=== PATIENT | female | born 1960 | race African-American/Black ===

== ENCOUNTER 2023-03-27 06:50 | Observation (INO) | payer OTHER, SELFPAY ==
[2023-03-27] VITALS (30 sets, daily range): BP systolic 110–146; BP diastolic 67–86; PULSE 99–132; RESP 16–28; TEMP 36.1–36.6; O2SAT 92–100; BMI 24.3
--- NOTE | ~2023-03-27 | US_ITS ---
EXAMINATION:US venous doppler LE BI INDICATION:Lower extremity edema TECHNIQUE: Multiple grayscale, color flow and Doppler images of the right and left lower extremity de ep venous systems were obtained and reviewed. COMPARISON:No prior studies for comparison. FINDINGS: The common femoral, superficial femoral and popliteal veins demonstrate normal respiratory variation, augmentation and compressibility. Color flow is also seen within the posterior tibial, pe roneal, greater saphenous and profunda veins. IMPRESSION: 1: No lower extremity deep venous thrombosis. Reviewed, dictated and finalized at location B.
--- NOTE | ~2023-03-27 | XR_ITS ---
XR chest 2V DATE: 03/27/2023 07:42 INDICATION: Left chest pain TECHNIQUE: AP and lateral views COMPARISON: None FINDINGS: Mild cardiomegaly. There is prominence of them greater fissures which may indicate subpleur al edema. There is mild infiltrate or atelectasis in the lower lung zones. No pleural effusion is evident. No p neumothorax. IMPRESSION: Cardiomegaly Prominence of fissures which may indicate subpleural edema, mild congestive change Mild infiltrate or atelectasis in the lower lung zones Reviewed, dictated and finalized at location A. IMPRESSION: Cardiomegaly Prominence of fissures which may indicate subpleural edema, mild congestive troy nge Mild infiltrate or atelectasis in the lower lung zones
--- NOTE | ~2023-03-27 | CT_ITS ---
EXAMINATION: CT chest abdomen pelvis w con DATE: 03/27/2023 08:45 INDICATION: Chest pain, upper abdominal pain TECHNIQUE: Computed tomography (CT) of the chest, abdomen, and pelvis was performed with 100 CC Omnip aque 350 intravenous contrast. Automated exposure control and iterative reconstruction technique were employed. Exam dose: 434.24 mGy-cm total exam DLP. COMPARISON: 03/27/2023 AP and lateral chest FINDINGS: CHEST CT: Minimal discoid atelectasis and/or scarring in the base of the middle lobe and both lower lobes. No p ulmonary mass lesion or consolidation. Mild cardiomegaly. Right pericardial 2.6 x 4 cm cyst. No pericardial or pleural effusion. No thoracic aortic aneurysm or dissection. ABDOMEN/PELVIS CT: Diffuse hepatic steatosis. No hepatic, splenic, pancreatic, and adrenal or renal space-occupying mass lesion is detected. The gallbladder appears unremarkable with the exception of an approximately 2 mm hyperdensity along t he lateral wall of the fundus which might be due to small vessel near the gallbladder wall or less li beto gallstone or gallbladder wall calcification. Consider gallbladder ultrasound for correlation if clinically indicated. Otherwise no gallbladder wall thickening or pericholecystic fluid or fat strand ing. No bile duct or pancreatic duct dilatation. No urinary tract calculus or hydroureteronephrosis. The urinary bladder is evacuated. Multiple calcified uterine fibroids. There is atherosclerotic calcification but normal caliber of the abdominal aorta. No intraperitoneal or retroperitoneal or pelvic mass lesion or adenopathy or ascites is noted. Diverticulosis of the colon; no CT evidence of diverticulitis. No bowel obstruction or intraperitonea l free air. Small fat-containing umbilical hernia. Degenerative changes of the cervical, thoracic and lumbar spine. No suspicious osteolytic or osteobla stic lesions are noted. IMPRESSION: Mild cardiomegaly Pericardial cyst Hepatic steatosis Multiple calcified uterine fibroids Diverticulosis of the colon Reviewed, dictated and finalized at Location A. Reviewed, dictated and finalized at location A.
--- NOTE | 2023-03-27 06:58 | ECG_ITS ---
Measurements Intervals [place] Rate: 99 P: 69 MN: 242 QRS: 28 QRSD: 69 T: 58 QT: 331 QTc: 425 Interpretive Statements SINUS RHYTHM WITH FIRST DEGREE AV BLOCK POSSIBLE RIGHT ATRIAL ENLARGEMENT POSSIBLE LEFT ATRIAL ENLARGEMENT LOW QRS VOLTAGE IN PRECORDIAL LEADS CANNOT RULE OUT SEPTAL INFARCT, AGE INDETERMINATE BORDERLINE ST-T WAVE ABNORMALITY- DIFFUSE LEADS ABNORMAL ECG NO PREVIOUS ECG AVAILABLE FOR COMPARISON Electronically Signed On 03-27-2023 7:12:02 CDT by Manjit Gould D.O.
[2023-03-27 07:13] LABS: Basophils Absolute Auto 0.1 K/mm3 (0.0-0.1); Basophils Percent Auto 0.4 % (0.2-1.2); Eosinophils Absolute Auto 0.1 K/mm3 (0-0.3); Eosinophils Percent Auto 0.5 % (0-4.4); Hematocrit 41.7 % (37.0-47.0); Hemoglobin 14.1 g/dL (12.0-15.0); Immature Granulocyte Absolute 0.07 K/mm3 (0.00-0.031); Immature Granulocyte Percent A 0.4 % (0-0.5); Lymphocytes Absolute Auto 2.92 K/mm3 (0.9-3.2); Lymphocytes Percent Auto 18.4 % (18.3-44.2); Mean Corpuscular HGB Conc 33.8 g/dl (32-36); Mean Corpuscular Hemoglobin 34.4 pg (26-34); Mean Corpuscular Volume 101.7 fl (80-100); Mean Platelet Volume 9.8 fl (7.4-10.4); Monocytes Absolute Auto 0.8 K/mm3 (0.1-0.6); Neutrophils Percent Auto 75.3 % (45.5-73.1); Platelet Count Result 251 k/mm3 (150-375); Red Cell Distribution Width 12.2 % (11.5-14.5); White Blood Count 15.9 K/mm3 (4.5-10.0)
[2023-03-27 07:25] LABS: Alanine Aminotransferase 25 U/L (6-35); Albumin Level 4.3 g/dL (3.5-5.1); Alkaline Phosphatase 110 U/L (38-126); Anion Gap 11 mmol/L (8-16); Aspartate Amino Transferase 31 U/L (14-36); Bilirubin,Total 0.5 mg/dL (0.2-1.3); Blood Urea Nitrogen 8 mg/dL (7-17); Calcium 8.1 mg/dL (8.4-10.2); Carbon Dioxide 26 mmol/L (22-30); Chloride 101 mmol/L (98-107); Estimated CRCL calculation 63 ml/min; Estimated Glomerular Filt Rate > 60; Glucose 144 mg/dL (65-110); Lipase 85 U/L (23-300); Potassium 3.6 mmol/L (3.4-5.0); Sodium 138 mmol/L (137-145)
[2023-03-27 07:26] LABS: INR 1.1; Prothrombin Time 14.3 Seconds (11.1-14.7)
--- NOTE | 2023-03-27 07:32 | PC.NURSE ---
c/o chest pain with deep breathing. c/o feeling sob with pain. pt having jerking movements to body.
[2023-03-27 07:36] LABS: Troponin I 0.026 ng/mL (0.000-0.034)
--- NOTE | 2023-03-27 07:37 | ED.CHESTPAIN ---
HPI - Chest Pain General Chief Complaint: Chest Pain Stated Complaint: CP Time Seen by Provider: 03/27/23 07:37 Source: patient Mode of arrival: EMS Limitations: no limitations History of Present Illness HPI narrative: 62 years old -Citizen Of [place] female into the ED by ambulance from home complaining of severe chest pain with breathing. Started 2-hour prior to arrival to the ED. Patient been using cocaine and drinking beer since yesterday noon. Patient has been up since noon yesterday until now. She denies any fever, chills, nausea, vomiting, shortness of breath. Related Data Allergies Allergy/AdvReac Type Severity Reaction Status Date / Time No Known Allergies Allergy Verified 03/27/23 07:16 Review of Systems Review of Systems: All systems reviewed & are unremarkable except as noted in HPI and below Exam Narrative: General appearance: Well-developed, well-nourished, restless, holding her chest by her hands Skin: Normal color Head: Normocephalic, nontraumatic Eyes: Clear conjunctiva ENT: Oropharynx normal, ears normal, nose normal Neck: Supple, nontender Chest and respiratory: Airway patent, no respiratory distress, no accessory muscle use Heart: Tachycardia, Abdomen: Soft, tenderness of epigastric area, no guarding or rebound, no organomegaly, quiet bowel sounds Vascular: Normal peripheral pulses, normal capillary refill. Musculoskeletal: Normal range of motion, nontender back Neurologic: Alert and oriented ?3, COLLAR SEWER is normal as tested, no gross motor deficit Course Reevaluation(s) Reevaluation #1: On arrival chest pain was 10 out of 10, currently 3 out of 10 after morphine 4 mg IV and Zofran 4 mg IV. Patient still having sinus tachycardia and not restless anymore. Looks more calm. Date: 03/27/23 Time: 11:07 Vital Signs Vital signs: Vital Signs Temperature 36.2 C L 03/27/23 06:50 Pulse Rate 99 03/27/23 06:50 Respiratory Rate 27 H 03/27/23 06:50 Blood Pressure 124/80 03/27/23 06:50 Pulse Oximetry 95 03/27/23 06:50 Oxygen Delivery Room Air 03/27/23 06:50 Temperature 36.2 C L 03/27/23 06:50 Pulse Rate 116 H 03/27/23 10:29 Respiratory Rate 16 03/27/23 10:29 Blood Pressure 129/82 03/27/23 10:29 Pulse Oximetry 100 03/27/23 10:29 Oxygen Delivery Room Air 03/27/23 06:59 MDM - Chest Pain MDM Narrative Medical decision making narrative: Patient came with the above complaint Physical examination showed restless patient with tachyarrhythmia, Differential diagnosis include cocaine induced chest pain which high likely secondary to coronary vasospasm, nitroglycerin and benzodiazepines are the drug of choice in this situation. Patient need to be observed for at least 12 hours Work-up today showed elevated WBC 15.9, normal coag, insignificant chemistry, troponin within normal limit x2 urine came back positive for cocaine, alcohol level is 182. EKG on arrival showed normal sinus rhythm with first-degree AV block at 99 bpm, right atrial enlargement, left atrial enlargement, low QRS voltage in precordial leads, cannot rule out septal infarction, age indeterminate, borderline ST T wave abnormality, abnormal EKG, no previous EKG available for comparison CT chest, abdomen and pelvis with IV contrast showed mild cardiomegaly, pericardial cyst. In the ED patient received morphine, Zofran, Nitropaste and Ativan. With mild to moderate improvement. Patient to be admitted to IMU for observation with cocaine induced chest pain, alcohol abuse. Differential Diagnosis Differential diagnosis: Likely pneumothorax, stable angina, unstable angina pectoris, costochondritis and chest pain Medical Records Data Attestation: I
[2023-03-27 08:05] LABS: Ethanol 182 mg/dL (<10)
--- NOTE | 2023-03-27 08:23 | PC.NURSE ---
Pt refusing to try to give urine sample at this time.
[2023-03-27] MEDS: ONDANSETRON INJ 4 MG/2 ML VIAL IV PUSH (08:46)
[2023-03-27] MEDS: MORPHINE SULFATE (*CRX) 4 MG/ML INJ IV PUSH (08:46)
[2023-03-27 09:08] LABS: Amphetamine Screen Urine Negative (Negative); Barbiturate Screen Urine Negative (Negative); Benzodiazepines Screen Urine Negative (Negative); Cannabinoid Screen Urine Negative (Negative); Cocaine Screen Urine Positive (Negative); Methadone Screen Urine Negative (Negative); Opiate Screen Urine Negative (Negative); Phencyclidine Screen Urine Negative (Negative)
[2023-03-27 10:31] LABS: Troponin I < 0.012 ng/mL (0.000-0.034)
--- NOTE | 2023-03-27 11:15 | ECG_ITS ---
Measurements Intervals [place] Rate: 118 P: 56 MA: 241 QRS: 21 QRSD: 75 T: 65 QT: 411 QTc: 577 Interpretive Statements SINUS TACHYCARDIA BORDERLINE AV CONDUCTION DELAY POSSIBLE LEFT ATRIAL ENLARGEMENT LOW QRS VOLTAGE IN PRECORDIAL LEADS BORDERLINE T WAVE ABNORMALITY- ANTEROLAT/INF LEADS ABNORMAL ECG COMPARED TO ECG 03/27/2023 06:59:29 SINUS TACHYCARDIA NOW PRESENT Electronically Signed On 03-27-2023 12:26:49 CDT by Manjit Gould D.O.
[2023-03-27] MEDS: NITROGLYCERIN OINTMENT 1 INCH DOSE TRANSDERM ×2 (11:40→18:31)
[2023-03-27] MEDS: LORazepam INJ (*CRX) 2 MG/ML VIAL 1 MG IV PUSH (11:40)
--- NOTE | 2023-03-27 14:23 | ADMGEN ---
This patient, Dinah Nguyen, was admitted to [facility] at 1418. Patient/family oriented to hospital policies and general routines including ID bracelet, bed and alarms, visiting hours, pain management, procedures, bathroom and other care routines, personal items, smoking policy, room service/diet, and visiting hours. Information on how to activate the Rapid Response Team has been discussed. Patient/Family are encouraged to report perceived risks to care and to ask questions if they do not understand what they are told or what they should do.
[2023-03-27] MEDS: SODIUM CHLORIDE 0.9% IV 1,000 ML 150 ML IV CONT (14:56)
--- NOTE | 2023-03-27 15:02 | PM.IMHP ---
H&P: HPI History of Present Illness Date/Time: 03/27/23 14:00 Chief Complaint: Chest pain. Narrative: This is a 62-year-old female with history of substance abuse who presented to the emergency department via EMS for evaluation of chest pain. The patient provides the following history. Approximately 2 hours prior to arrival she developed sudden onset of severe chest pain and shortness of breath while taking a shower. She describes a sharp pain in the center of the chest which is worse with cough, deep inspiration, and palpation on exam. She also felt short of breath at that time however that has since resolved. She has never had similar symptoms, denies exertional chest pain, lightheadedness, dizziness, syncope, near syncope, sweats, nausea, and vomiting. She has noticed mild swelling in her legs recently which is unusual for her but she has not had any calf pain or tenderness and she denies recent travel and personal or family history of venous thromboembolism. She gets indigestion rarely and states her symptoms are not at all similar. She has not had any recent injuries or trauma and she denies recent change in activity levels. Of note she does admit to smoking cocaine yesterday however it was many hours after when the chest pain occurred. Blood pressure has been stable since arrival. She has been persistently tachycardic in the low 100s. Labs were significant for WBC of 15.9, glucose 144, lipase 85, and normal troponin. CT of the chest, abdomen, and pelvis with contrast showed mild cardiomegaly and no acute findings. Chest x-ray showed cardiomegaly with prominence of fissures which may indicate subpleural edema. Mild infiltrate or atelectasis noted in the lower lung zones. EKG showed a sinus tachycardia with borderline AV conduction delay, possible left atrial enlargement, low QRS voltage in precordial leads, and borderline T-wave abnormalities in the anterolateral/inferior leads. She is being admitted in this setting for close monitoring. Review of Systems Review of Systems: Twelve systems were reviewed and are negative except for as per HPI. [facility] Past Medical History Medical History Anxiety Cocaine abuse Tobacco use Surgical History Surgical History (Updated 03/27/23 @ 22:37 by Barbi Serna PA-C) History of bilateral cataract extraction Family History Family History Mother Cerebrovascular accident Social History Social History (Updated 03/27/23 @ 22:37 by Barbi Serna PA-C) Social History: Surrogate medical decision maker: Cristiano Delgadillo, significant other. Code status: Full code. Years smoked: 50 Smoking status: Current every day smoker Alcohol intake: current Drinks per week: 12 Substance use type: crack/cocaine Spiritual care concerns: No Meds Home Medications and Allergies Home Medications Medication Instructions Recorded Confirmed Type aspirin 81 mg chewable tablet 81 mg PO DAILY@0800 1 month #30 03/28/23 Rx (Children's Aspirin) tabs Allergies Allergy/AdvReac Type Severity Reaction Status Date / Time No Known Allergies Allergy Verified 03/27/23 07:16 Vital Signs Vital Signs - 24 hr 03/27/23 06:50 03/27/23 06:59 03/27/23 08:04 Temperature 97.2 F L Pulse Rate 99 110 H Respiratory Rate 27 H Blood Pressure 124/80 Pulse Oximetry 95 95 Oxygen Delivery Room Air Room Air 03/27/23 08:05 03/27/23 08:01 03/27/23 08:02 Temperature Pulse Rate 110 H 109 H 109 H Respiratory Rate 16 18 28 H Blood Pressure 128/72 128/72 Pulse Oximetry 99 100 100 Oxygen Delivery 03/27/23 08:15 03/27/23 08:46 03/27/23 09:00 Temperature Pulse Rate 132 H 117 H Respiratory Rate 23 H 19 Blood Pressure Pulse Oximetry 99 99 95 Oxygen Delivery 03/27/23 09:15 03/27/23 09:16 03/27/23 09:30 Temperature Pulse Rate 117 H 117 H 116 H Respiratory Rate 21 H 21 H 20 Blood Pressure 126
[2023-03-27 16:21] LABS: Troponin I < 0.012 ng/mL (0.000-0.034)
[2023-03-27 18:35] LABS: Troponin I < 0.012 ng/mL (0.000-0.034)
[2023-03-28] VITALS (8 sets, daily range): BP systolic 124–138; BP diastolic 62–76; PULSE 87–104; RESP 16–20; TEMP 36.2–36.6; O2SAT 97–100
--- NOTE | 2023-03-28 | ECHO_ITS ---
Patient Info Name: Dinah Nguyen Age: 62 years : 1960 Gender: Female Ht: 65 in Wt: 146 lbs BSA: 1.75 m2 HR: 100 bpm BP: 132 / 71 mmHg Heart Rhythm: Tachycardia, Sinus Rhythm Technical Quality: Fair Exam Date: 03/28/2023 8:51 AM Exam Location: [facility] Patient Status: Inpatient Admit Date: 03/27/2023 Staff Ordering Physician: Barbi Serna PA-C Wrapper Hand: Patricia Cuenca RDCS Attending Provider: Kavya Tello DO Referring Physician: Kareem BRISCOE; Exam Type: CA echo dop color flow w con Study Info Indications R00.0 - Tachycardia, unspecified - lower extremity edema R07.9 - Chest pain, unspecified Complete two-dimensional, color flow and Doppler transthoracic echocardiogram is performed with contrast to opacify the left ventricle and to improve the deliniation of the left ventricle endocardial borders. Contrast/Agitated Saline Contrast/Ag. Saline: Definity Amount: 2.00 ml Administered By: Patricia Cuenca RDCS Existing IV Access: Yes IV Access Condition: patent with no signs of infiltration Summary 1. Normal left ventricular size, thickness and systolic function with grade 1 diastolic noncompliance. 2. Definity contrast utilized to improve visualization. 3. Mild sclerosis of the non coronary cusp of the aortic valve with no functional stenosis. Left Ventricle Left ventricular chamber dimension is normal. Left ventricular systolic function is normal, estimated at 65-70%. The left ventricular diastolic function is grade I diastolic dysfunction. Right Ventricle Right ventricular chamber dimension is normal. Left Atria Left atrial chamber dimension is normal. Right Atria Right atrial chamber dimension is normal. Aortic Valve The aortic valve is trileaflet. There is mild aortic valve sclerosis. Pulmonic Valve The pulmonic valve is normal. Mitral Valve The mitral valve has normal leaflets. Tricuspid Valve The tricuspid valve leaflets are normal. Pericardium/Pleural The pericardium appears normal. Aorta The aortic root size at the sinus of Valsalva is normal. Left Ventricular Outflow Tract Name Value Normal LVOT 2D LVOT Diameter 2.02 cm LVOT Doppler LVOT Peak Gradient 5 mmHg LVOT Mean Gradient 2 mmHg LVOT VTI 16.81 cm LVOT VTI/AV VTI Ratio 0.80 LVOT Stroke Volume 53.93 ml LVOT CO 5.27 l/min LVOT CI 3.01 L/min/m2 Pulmonic Valve Name Value Normal RVOT Doppler RVOT Peak Gradient 3 mmHg PV Doppler PV Peak Gradient 5 mmHg Mitral Valve Name
[2023-03-28 05:04] LABS: Hemoglobin 14.2 g/dL (12.0-15.0); Mean Corpuscular HGB Conc 33.8 g/dl (32-36); Mean Corpuscular Hemoglobin 34.2 pg (26-34); Mean Corpuscular Volume 101.2 fl (80-100); Mean Platelet Volume 10.2 fl (7.4-10.4); Platelet Count Result 230 k/mm3 (150-375); Red Blood Count 4.15 M/mm3 (4.2-5.4); Red Cell Distribution Width 12.1 % (11.5-14.5); White Blood Count 6.5 K/mm3 (4.5-10.0)
[2023-03-28 05:21] LABS: Anion Gap 3 mmol/L (8-16); Blood Urea Nitrogen 10 mg/dL (7-17); Calcium 8.4 mg/dL (8.4-10.2); Carbon Dioxide 31 mmol/L (22-30); Chloride 102 mmol/L (98-107); Estimated CRCL calculation 56 ml/min; Estimated Glomerular Filt Rate > 60; Glucose 137 mg/dL (65-110); Magnesium 2.2 mg/dL (1.6-2.3); Potassium 4.2 mmol/L (3.4-5.0); Sodium 136 mmol/L (137-145)
[2023-03-28 05:28] LABS: CRP 17.7 mg/dL (<1.0)
[2023-03-28] MEDS: ENOXAPARIN 40 MG/0.4 ML SYRINGE SUB-Q (08:43)
[2023-03-28] MEDS: ASPIRIN 81 MG CHEWABLE TABLET PO (08:43)
[2023-03-28] MEDS: PERFLUTREN LIPID MICROSPHERES 1.5 ML VIAL DILUTED TO 10 ML TOTAL VOLUME IV PUSH (09:24)
--- NOTE | 2023-03-28 09:27 | PM.IMPN ---
Progress Note: A&P Assessment and Plan (1) Chest pain: Code(s): R07.9 - Chest pain, unspecified Status: Acute Assessment and Plan: Patient describes pleuritic chest pain. CT of the chest, abdomen, and pelvis with contrast showed no acute findings. She does have tenderness to palpation on exam over the mid to low sternum and this may very well be musculoskeletal in etiology. With her cocaine use and enlarged cardiac silhouette on imaging, echocardiogram has been ordered. Pleurisy and costochondritis are also possible. Her white blood cell count is a bit elevated however pneumonia seems less likely by history and was not seen on chest CT. (2) Sinus tachycardia: Code(s): R00.0 - Tachycardia, unspecified Status: Acute Assessment and Plan: Likely related to cocaine use yesterday. Chest CT did not show any evidence of pulmonary embolism. TSH pending. (3) Cocaine abuse: Code(s): F14.10 - Cocaine abuse, uncomplicated Status: Acute Assessment and Plan: She used cocaine yesterday which is likely the cause of her tachycardia. Discussed the importance of avoiding the use of this drug. (4) Tobacco use: Code(s): Z72.0 - Tobacco use Status: Acute Assessment and Plan: Patient denies the need for nicotine patch at this time. Subjective Date/time seen: 03/28/23 09:27 Interval history: No overnight events noted. No chest pain or shortness of breath. No nausea, vomiting or diarrhea. No fevers or chills. Review of Systems Review of Systems: 12 point review of systems was assessed and was negative except as noted in the HPI Exam Narrative: General: No acute distress, alert and oriented per baseline HEENT: Atraumatic, normocephalic, mucous membranes moist CV: Regular rate and rhythm, S1, S2 Lungs: Clear to auscultation bilaterally, no rales or crackles noted, no wheezes, good air entry Abdomen: Soft, nontender, nondistended Extremities: Normal to inspection Skin: No rashes noted, no lesions or wounds seen Psych: Euthymic, normal affect Objective Data Vital Signs Vital Signs: Vital Signs - 24 hr 03/27/23 09:30 03/27/23 09:31 03/27/23 10:29 Temperature Pulse Rate 116 H 116 H 116 H Respiratory Rate 20 21 H 16 Blood Pressure 122/79 129/82 Pulse Oximetry 95 95 100 Oxygen Delivery 03/27/23 10:58 03/27/23 11:16 03/27/23 11:32 Temperature Pulse Rate 121 H 120 H 120 H Respiratory Rate 18 16 22 H Blood Pressure 135/86 127/86 Pulse Oximetry 100 100 96 Oxygen Delivery 03/27/23 11:46 03/27/23 12:08 03/27/23 12:16 Temperature Pulse Rate 121 H 124 H 127 H Respiratory Rate 22 H 22 H 23 H Blood Pressure 135/79 129/78 Pulse Oximetry 95 94 98 Oxygen Delivery 03/27/23 13:01 03/27/23 13:46 03/27/23 14:32 Temperature 97.4 F L Pulse Rate 123 H 117 H 118 H Respiratory Rate 21 H 23 H 16 Blood Pressure 121/68 110/67 135/71 Pulse Oximetry 96 92 Oxygen Delivery 03/27/23 16:45 03/27/23 16:00 03/27/23 16:00 Temperature 96.9 F L Pulse Rate 130 H 124 H Respiratory Rate 20 Blood Pressure 146/79 H Pulse Oximetry 93 Oxygen Delivery Room Air 03/27/23 18:00 03/27/23 20:00 03/27/23 20:00 Temperature 97.1 F L Pulse Rate 119 H 110 H 113 H Respiratory Rate 18 Blood Pressure 125/69 Pulse Oximetry 98 Oxygen Delivery 03/27/23 20:00 03/27/23 22:00 03/27/23 23:15 Temperature 97.9 F Pulse Rate 113 H 110 H 111 H Respiratory Rate 18 16 Blood Pressure 123/69 Pulse Oximetry 98 98 Oxygen Delivery Room Air 03/27/23 23:19 03/27/23 23:19 03/28/23 02:00 Temperature Pulse Rate 108 H 108 H 100 Respiratory Rate 16 Blood Pressure Pulse Oximetry 98 Oxygen Delivery Room Air 03/28/23 04:00 03/28/23 04:00 03/28/23 04:00 Temperature 97.9 F Pulse Rate 104 H 100 100 Respiratory Rate 20 20 Blood Pressure 132/71 Pulse Oximetry 97 97
--- NOTE | 2023-03-28 09:55 | IVDEFINITY ---
Prior to administration of IV Definity the patient was educated on the risks and benefits of the imaging enhancing agent including potential adverse side effects. The patient verbalized understanding. Allergies were verified. No exclusion criteria were identified and at least one of the following inclusion criteria were met: 1) physician request, 2) patient technically difficult to image (per the [place] [employer] guidelines of two or more segments not discernable within the apical view), or 3) questionable left ventricular function. ?
--- NOTE | 2023-03-28 16:34 | PM.DS ---
DS: Admitting Diagnosis Discharge Date 03/28/23 Admitting Diagnosis Chest pain DS: Discharge Diagnosis Discharge Diagnosis (1) Chest pain: Code(s): R07.9 - Chest pain, unspecified Status: Acute Assessment and Plan: Patient describes pleuritic chest pain. CT of the chest, abdomen, and pelvis with contrast showed no acute findings. She does have tenderness to palpation on exam over the mid to low sternum and this may very well be musculoskeletal in etiology. With her cocaine use and enlarged cardiac silhouette on imaging, echocardiogram has been ordered. Pleurisy and costochondritis are also possible. Her white blood cell count is a bit elevated however pneumonia seems less likely by history and was not seen on chest CT. (2) Sinus tachycardia: Code(s): R00.0 - Tachycardia, unspecified Status: Acute Assessment and Plan: Likely related to cocaine use yesterday. Chest CT did not show any evidence of pulmonary embolism. TSH pending. (3) Cocaine abuse: Code(s): F14.10 - Cocaine abuse, uncomplicated Status: Acute Assessment and Plan: She used cocaine yesterday which is likely the cause of her tachycardia. Discussed the importance of avoiding the use of this drug. (4) Tobacco use: Code(s): Z72.0 - Tobacco use Status: Acute Assessment and Plan: Patient denies the need for nicotine patch at this time. DS: Summary Hospital Course Hospital Course: 62-year-old female with history of substance abuse who presented to the emergency department via EMS for evaluation of chest pain. Patient describes pleuritic chest pain. CT of the chest, abdomen, and pelvis with contrast showed no acute findings. She does have tenderness to palpation on exam over the mid to low sternum and this may very well be musculoskeletal in etiology. With her cocaine use and enlarged cardiac silhouette on imaging, echocardiogram has been ordered. Pleurisy and costochondritis are also possible. Her white blood cell count is a bit elevated however pneumonia seems less likely by history and was not seen on chest CT. Likely related to cocaine use yesterday. Chest CT did not show any evidence of pulmonary embolism. TSH pending. All symptoms thought to be secondary to cocaine use. Cessation recommended. Workup essentially negative. She was discharged in stable condition with close outpatient follow-up. Please see above and med rec for details. Echo results: Left ventricular systolic function is normal, estimated at 65-70%. The left ventricular diastolic function is grade I diastolic dysfunction. Time Spent with Patient Time attestation: Total time spent providing and/or coordinating discharge services: Exam Narrative: General: No acute distress, alert and oriented per baseline HEENT: Atraumatic, normocephalic, mucous membranes moist CV: Regular rate and rhythm, S1, S2 Lungs: Clear to auscultation bilaterally, no rales or crackles noted, no wheezes, good air entry Abdomen: Soft, nontender, nondistended Extremities: Normal to inspection Skin: No rashes noted, no lesions or wounds seen Psych: Euthymic, normal affect DS: Data Data Completed and Pending Labs on day of discharge: Labs from last 24 hours 03/28/23 03/27/23 04:37 17:37 WBC 6.5 RBC 4.15 L Hgb 14.2 Hct 42.0 MCV 101.2 H MCH 34.2 H MCHC 33.8 RDW 12.1 Plt Count 230 MPV 10.2 Sodium 136 L Potassium 4.2 Chloride 102 Carbon Dioxide 31 H Anion Gap 3 L BUN 10 Creatinine 0.80 Estim Creat Clear Calc 56 Estimated GFR > 60 Glucose 137 H Calcium 8.4 Magnesium 2.2 Troponin I < 0.012 C-Reactive Protein 17.7 H TSH (Reflex) 2.830 Discharge Plan Discharge Attending physician on discharge: Kavya Tello Consulting providers: Barbi Serna; Manjit Gould; Francesco Blair; Pedro Yung; Sukhjinder Alcaraz Discharging [facility]
== END 2023-03-28 17:15 | disposition home or self-care (01) ==
LOC: ANHED 11:14 → ANHIMU 11:45
PROVIDERS: Emergency Medicine; Physician Assistant; Admitting Provider Student in an Organized Health Care Education/Training Program; Emergency Provider Emergency Medicine; Visit Provider Student in an Organized Health Care Education/Training Program
DX: R07.1 Chest pain on breathing (principal); R00.0 Tachycardia, unspecified; R10.10 Upper abdominal pain, unspecified; I35.8 Other nonrheumatic aortic valve disorders; I51.89 Other ill-defined heart diseases; Q24.8 Other specified congenital malformations of heart; K76.0 Fatty (change of) liver, not elsewhere classified; D25.9 Leiomyoma of uterus, unspecified; K57.30 Diverticulosis of large intestine without perforation or abscess without bleeding; R94.31 Abnormal electrocardiogram [ECG] [EKG]; F17.210 Nicotine dependence, cigarettes, uncomplicated; F10.10 Alcohol abuse, uncomplicated; Y90.6 Blood alcohol level of 120-199 mg/100 ml; F14.10 Cocaine abuse, uncomplicated
CPT/HCPCS: 36415; 71046; 71260; 74177; 80048; 80053; 80307; 83690; 83735; 84443; 84484; 85025; 85027; 85610; 85730; 86140; 93005; 93970; 96372; 96374; 96375; 99285; A9270; C8929; G0378; G0379; J1650; J2060; J2270; J2405; J7030; Q9957; Q9967